=== PATIENT | male | born 1985 | race Caucasian/White ===

== ENCOUNTER 2017-03-22 03:20 | Emergency (ER) | payer OTHER ==
[~2017-03-22] VITALS: Ht 180.3 cm; Wt 99.8 kg
--- NOTE | ~2017-03-22 | CR142 ---
[facility] A Service of [facility] & [facility] RADIOLOGY TEXT RESULTS PATIENT: OSMAN STEPHENSON LOCATION: [facility] [[email or web address]] : [birth year] UNIT #: [id number] AGE: [address]: Mir Agarwal DO SEX: M ORDER DR: [id number] [place] [id number] E MR#: [id number] Acc #: [id number] NAME: OSMAN STEPHENSON : 1985 SEX: M STUDY DATE/TIME: 03/22/2017 03:49 UNIT: [facility] [[email or web address]] ROOM: STUDY DESCRIPTION: CR Hand Min 3 Views Rt Attending Physician: Mir Agarwal Ordering Physician: Mir Agarwal Primary Care Physician: Viry Robins M.D. MEDICAL IMAGING REPORT This report is preliminary unless electronic signature is present. EXAM Right hand, 03/22 at 03:49 INDICATION Hand pain and swelling after punching a wall prior to arrival. FINDINGS Three views of the right hand were obtained. There is a fracture of the mid shaft of the fifth metacarpal with volar angulation and overlying soft tissue swelling. No other fractures are seen. The remainder of the hand is negative. IMPRESSION Fifth metacarpal diaphysis fracture with volar angulation. Dictated by... Ravi Medley Jr., M.D. THIS IS AN ELECTRONICALLY VERIFIED REPORT Ravi Medley Jr., M.D. at 03/22/2017 8:52 PM KEITH/aneudy TD: 03/22/2017 12:52 JOB #: [id number] MEDICAL IMAGING REPORT Page 1 of 1
[~2017-03-22 03:20] MED LIST: PHENERGAN PO; VICODIN 5/500 T1 TAB PO
== END 2017-03-22 05:42 | disposition home or self-care (01) ==
LOC: SED 03:20 → STPL 03:55 → SED 03:55 → STPL 05:42
DX: S62.326A Displaced fracture of shaft of fifth metacarpal bone, right hand, initial encounter for closed fracture (principal); Z88.0 Allergy status to penicillin; W22.8XXA Striking against or struck by other objects, initial encounter; Y92.9 Unspecified place or not applicable
CPT/HCPCS: 29125; 73130; 99283